=== PATIENT | female | born 2000 | race Caucasian/White ===

== ENCOUNTER 2022-01-11 03:20 | Emergency (ER) | payer SELFPAY ==
[~2022-01-11] VITALS: Ht 162.6 cm; Wt 50.0 kg
[2022-01-11 03:31] VITALS: BP 123/70
[2022-01-11] MEDS ORDERED: NALO4SPR BOTHNSTRLS (03:52)
== END 2022-01-11 03:58 | disposition home or self-care (01) ==
LOC: ER 03:20
DX: F19.10 Other psychoactive substance abuse, uncomplicated (principal); F15.10 Other stimulant abuse, uncomplicated; F12.10 Cannabis abuse, uncomplicated; F14.10 Cocaine abuse, uncomplicated; F41.9 Anxiety disorder, unspecified; F17.290 Nicotine dependence, other tobacco product, uncomplicated
CPT/HCPCS: 82962; 99283